=== PATIENT | female | born 1980 | race Caucasian/White ===

== ENCOUNTER 2023-04-03 02:31 | Emergency (ER) | payer OTHER ==
[~2023-04-03] VITALS: Ht 157.5 cm; Wt 60.0 kg
[2023-04-03 03:06] VITALS: BP 114/70; PULSE 95; RESP 19; TEMP 97.9; O2SAT 97
== END 2023-04-03 09:04 | disposition left against medical advice (07) ==
LOC: ER 02:31
DX: K59.00 Constipation, unspecified (principal); Z53.21 Procedure and treatment not carried out due to patient leaving prior to being seen by health care provider
CPT/HCPCS: 99281